=== PATIENT | female | born 1975 | race Caucasian/White ===

== ENCOUNTER 2018-08-01 20:52 | Emergency (ER) | payer MEDICAID ==
[~2018-08-01] VITALS: Ht 172.7 cm; Wt 70.0 kg
[2018-08-01 20:55] VITALS: BP 174/106
--- NOTE | 2018-08-01 21:10 | NUR ---
PA TO BEDSIDE TO ASSESS PT. BP RECHECKED MANUAL BY PA 150/90
== END 2018-08-01 21:36 | disposition home or self-care (01) ==
LOC: ED 21:10
DX: Z02.89 Encounter for other administrative examinations (principal); I10 Essential (primary) hypertension
CPT/HCPCS: 99281